=== PATIENT | female | born 1980 | race Caucasian/White ===

== ENCOUNTER 2019-02-17 15:12 | Emergency (ER) | payer SELFPAY ==
[~2019-02-17] VITALS: Ht 162.6 cm; Wt 68.0 kg
[2019-02-17 15:19] VITALS: BP 127/90
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
[2019-02-17] MEDS ORDERED: IBUPROFEN 600 MG TAB PO ONE (15:55)
[2019-02-17] MEDS ORDERED: CYCLOBENZAPRINE 10 MG TAB PO ONE (15:55)
--- NOTE | 2019-02-17 16:00 | NUR ---
FLEXERIL AND MOTRIN GIVEN, PT STATES 7 PAIN @ THIS TIME. VSS.
[2019-02-17 16:41] VITALS: BP 128/85
--- NOTE | 2019-02-17 16:41 | NUR ---
PAIN REASSESSED; PT 06/01 @ THIS TIME, PT STATES COMFORTABLE, DENIES DISTRESS. VSS.
--- NOTE | 2019-02-17 16:43 | NUR ---
Patient discharged with v/s stable. Written and verbal after care instructions given and explained. Patient alert, oriented and verbalized understanding of instructions. Ambulatory with steady gait. All questions addressed prior to discharge. ID band removed. Patient advised to follow up with PMD. Rx of ROBAXIN, AND TYLENOL ES given. Patient educated on indication of medication including possible reaction and side effects. Opportunity to ask questions provided and answered.
== END 2019-02-17 16:43 | disposition home or self-care (01) ==
LOC: MED 15:12
DX: S16.1XXA Strain of muscle, fascia and tendon at neck level, initial encounter (principal); S20.219A Contusion of unspecified front wall of thorax, initial encounter; M25.511 Pain in right shoulder; M25.512 Pain in left shoulder; M54.9 Dorsalgia, unspecified; V89.2XXA Person injured in unspecified motor-vehicle accident, traffic, initial encounter; Y93.89 Activity, other specified; Y92.411 Interstate highway as the place of occurrence of the external cause; Y99.8 Other external cause status
CPT/HCPCS: 71045; 81025; 99283; Q0092